=== PATIENT | female | born 1960 | race Caucasian/White ===

== ENCOUNTER 2021-05-09 09:50 | Day surgery (SDC) | payer BC ==
[2021-05-08 14:04] LABS: Absolute Lymphocytes (CBC) 1.9 K/uL (0.7-4.9); Basophils % 0.7 % (0-1.3); Hematocrit 48.1 % (36.0-45.0); Lymphocytes % 16.7 % (15.3-44.8); MPV 7.5 fL (7.6-11.3); RBC Red Blood Cell Count 4.55 M/uL (3.86-4.86)
[2021-05-08 14:10] LABS: BUN Blood Urea Nitrogen 5 mg/dL (7-18); Bicarbonate 26 mmol/L (21-32); Glucose Level 84 mg/dL (74-106); Sodium Level 138 mmol/L (136-145)
[2021-05-08 20:50] LABS: Blood Morphology Comment NOTED (NOT SEEN); Platelet Estimate ADEQ; White Blood Cell Scan OK (OK)
[2021-05-09] MEDS ORDERED: CELECOXIB 100 MG CAPSULE PO ONE (10:30)
[2021-05-09] MEDS ORDERED: ACETAMINOPHEN 500 MG TAB PO ONE (10:30)
[2021-05-09] MEDS ORDERED: CEFAZOLIN/SWI 1gm 1 GM/10 ML SYR ONE (10:37)
[2021-05-09] MEDS ORDERED: Ringers Lactate 1,000 ML IV ONE (10:37)
[2021-05-09] MEDS ORDERED: BUPIVACAINE 0.25% PF 10 ML VIAL ONE ×2 (11:19→12:15)
[2021-05-09] MEDS ORDERED: CELECOXIB 100 MG CAPSULE ONE (11:54)
[2021-05-09] MEDS ORDERED: ACETAMINOPHEN 500 MG TAB ONE (11:54)
[2021-05-09] MEDS ORDERED: FENTANYL CITR 100 MCG/2 ML ONE ×2 (12:31→13:06)
[2021-05-09] MEDS ORDERED: MIDAZOLAM HCL 2 MG/2 ML INJ ONE (12:31)
[2021-05-09] MEDS ORDERED: dexAMETHasone 10 MG/ML VIAL ONE (12:31)
[2021-05-09] MEDS ORDERED: propofoL 200 MG/20 ML VIAL IV ONE (12:31)
[2021-05-09] MEDS ORDERED: ROCURONIUM 50 MG/5 ML VIAL IV ONE (12:32)
[2021-05-09] MEDS ORDERED: LIDOCAINE 2% MPF 5 ML VIAL ONE (12:32)
[2021-05-09] MEDS ORDERED: ONDANSETRON 4 MG/2 ML VIAL ONE ×2 (12:32→13:59)
--- NOTE | 2021-05-09 13:08 | P.OP ---
Preoperative diagnosis: Ventral Abdominal Hernia Postoperative diagnosis: Ventral Abdominal Hernia Primary procedure: Laparoscopic Ventral Hernia Repair with mesh Secondary procedure: Laparoscopic Adhesiolysis Anesthesia: GETA Estimated blood loss: <5cc Specimen: none Findings: ~3 cm hernia neck Complications: None Implants: 11cm Round Bard Ventralite Mesh with Echo positoin Transferred to: Recovery Room Condition: Good
[2021-05-09] MEDS ORDERED: GLYCOPYRROLATE 0.2 MG/ML SYR ONE ×2 (13:34)
[2021-05-09] MEDS ORDERED: NEOSTIGMINE 1 MG/ML -5 ML ONE (13:36)
[2021-05-09] MEDS: HYDROMORPHONE HCL 1 MG/ML INJ ONE ×4 (13:37→14:00)
[2021-05-09] MEDS ORDERED: HYDROMORPHONE HCL 1 MG/ML INJ ONE (14:33)
[2021-05-09] MEDS ORDERED: HYDROCODONE/APAP 7.5/325 MG TAB ONE (15:10)
[2021-05-09 15:13] VITALS: BP 148/83; TEMP 97; O2SAT 91
--- NOTE | 2021-05-09 15:25 | OP ---
Date of Procedure: 05/09/2021 Surgeon: Bryon Burnett MD, Preoperative Diagnosis: Ventral abdominal hernia. Postoperative Diagnosis: Ventral abdominal hernia. Procedures Performed: 1.Laparoscopic ventral hernia repair with mesh. 2.Laparoscopic adhesiolysis. Anesthesia: General endotracheal plus local with 0.25%Marcaine. Estimated Blood Loss: Less than 5 mL. Specimen: None. Findings: Approximately 3 cm hernia neck. Complications: None. Implants: An 11 cm Bard Ventralight mesh with Echo Positioning System. Disposition: The patient was transferred to the recovery room in good condition. Procedure In Detail: After informed consent was obtained, the patient was brought to the operating r oom, prepped and draped in the usual sterile fashion after adequate anesthesia was achieved. The are a in the left upper quadrant was anesthetized with 0.25% Marcaine, sharply incised, and a 5 mm trocar was introduced in the abdomen without evidence of complication. Insufflation was obtained to 15 mmH g at this time. There was no injury to vital structure upon entry into the abdomen. Additional troc ar was placed in the left lower quadrant. This was similarly anesthetized and sharply incised. A 12 mm trocar was placed under direct visualization without evidence of complication. The LigaSure was then used to dissect the hernia sac, which was found to be in the supraumbilical position, dissected down and removing a significant amount of preperitoneal fat from this area. After the hernia sac was completely cleared of all preperitoneal fat, the falciform ligament and preperitoneal tissues were d issected back using the LigaSure far enough away to allow for proper landing zone of the 11 cm mesh, which was sized appropriately at this point. I then brought in the Endo Stitch, V-Loc and primarily closed and sutured the defect closed with good apposition of the tissues. I then brought the [address] mesh into the field through the left lower quadrant trocar. I positioned it and c entralized in central position over the mesh and made a small stab incision through the abdominal wal l midline after anesthetizing the tract and used a Sheri suture passer to grasp and elevate and deployed the balloon inflation system overlying the mesh, which was at the [address] mesh with Echo Positioning System. After the mesh was deployed properly, the SorbaFix absorbabl e fixation tacks were used to circumferentially attach a double crown to the anterior abdominal wall. The balloon deployment system was then removed in its entirety, found to be intact on the back tabl e. The remaining tacks were placed to secure the mesh to the anterior abdominal wall. A total of 60 absorbable fixation tacks were used. At this point, the patient was positioned slightly right side down and the 12 mm trocar site was closed using a Jose-Geovanna suture passer with 0 Vicryl in inte rrupted fashion with good apposition of the tissues. At this point, the abdomen was completely desuf flated under direct visualization without evidence of complication. The remaining trocar sites were inspected and the abdomen was completely desufflated. All skin incisions were copiously irrigated an d closed with a 4-0 Monocryl in a running fashion. Dermabond placed over top. The patient tolerated the procedure well without evidence of complication and transferred to PACU in good condition. All counts were correct at the end of the case. MINI/RANI Voice ID: [id number] Report ID: [id number]
== END 2021-05-09 15:11 | disposition home or self-care (01) ==
LOC: OR 09:50
PROVIDERS: ATTEND Surgery
PROC: 0WUF4JZ Supplement Abdominal Wall with Synthetic Substitute, Percutaneous Endoscopic Approach (ICD-10-PCS; principal; 2021-05-09 11:15)
DX: K43.9 Ventral hernia without obstruction or gangrene (principal); Z20.822 Contact with and (suspected) exposure to COVID-19
CPT/HCPCS: 85025; 80048; 36415; 49652; U0003; J2704; J2250; J3010 ×2; J1100; J1170 ×3; J2710; J0690; J7120; J2405 ×2; C1781